=== PATIENT | male | born 1945 | race Caucasian/White ===

== ENCOUNTER → 2020-01-25 | Outpatient (CLI) | payer MEDICARE ==
--- NOTE | 2020-01-26 09:55 | ECHOF ---
Referral Reason:Z73.89 Other problems related to activity... MEASUREMENTS -------- HEIGHT: 185.4 cm WEIGHT: 119.7 kg BP: RVIDd: 3.5 cm (< 3.3) IVSd: 1.2 cm (0.6 - 1.1) LVIDd: 4.3 cm (3.9 - 5.3) LVPWd: 1.2 cm (0.6 - 1.1) IVSs: 1.4 cm LVIDs: 3.1 cm LVPWs: 1.5 cm LA Diam: 3.5 cm (2.7 - 3.8) Ao Diam: 3.5 cm (2.0 - 3.7) AV Cusp: 1.9 cm (1.5 - 2.6) MV EXCURSION: 8.883 mm (> 18.000) MV EF SLOPE: 40 mm/s (70 - 150) EPSS: 1.2 cm MV E Jaziel: 0.74 m/s MV DecT: 243 ms MV A Jaziel: 0.83 m/s MV E/A Ratio: 0.90 RAP: 5.00 mmHg RVSP: 48.21 mmHg FINDINGS -------- Sinus rhythm. This was a technically difficult study with suboptimal views. The left ventricular size is normal. There is borderline concentric left ventricular hypertrophy. Overall left ventricular systolic function is normal with, an EF between 60 - 65 %. The right ventricle is mildly enlarged. The left atrium is normal in size. The right atrium was not well visualized. 5.0mg of Lumason was utilized for enhancement of images Interatrial and interventricular septum intact. The aortic valve is trileaflet and appears structurally normal. The mitral valve is normal. Mild tricuspid regurgitation present. There is mild to moderate pulmonary hypertension. The right ventricular systolic pressure, as measured by Doppler, is 48.21mmHg. The pulmonic valve was not well visualized. The aortic root size is normal. IVC Not well visulized. Echo free space may represent effusion or a pericardial fat pad. CONCLUSIONS -------- 1. The left ventricular size is normal. 2. There is borderline concentric left ventricular hypertrophy. 3. Overall left ventricular systolic function is normal with, an EF between 60 - 65 %. 4. The right ventricle is mildly enlarged. 5. 5.0mg of Lumason was utilized for enhancement of images 6. Mild tricuspid regurgitation present. 7. There is mild to moderate pulmonary hypertension. 8. The right ventricular systolic pressure, as measured by Doppler, is 48.21mmHg. 9. Echo free space may represent effusion or a pericardial fat pad. LEAD PROJECT MANAGER: JARRED Rainey
== END | disposition home or self-care (01) ==
LOC: RADECHMAIN 11:58
PROVIDERS: ATTEND Family Medicine
DX: I07.1 Rheumatic tricuspid insufficiency (principal); I27.20 Pulmonary hypertension, unspecified
CPT/HCPCS: C8929; Q9950; 93306

== ENCOUNTER → 2020-06-08 | Outpatient (CLI) | payer MEDICARE ==
--- NOTE | 2020-06-08 11:48 | CT ---
EXAMINATION TYPE: CT chest w con DATE OF EXAM: 06/08/2020 COMPARISON: None HISTORY: Dyspnea on exertion. CT DLP: 579.4 mGycm, Automated exposure control for dose reduction was used. CONTRAST: Performed injected with 100 mL of Isovue M300. TECHNIQUE: Axial images were obtained at 5 mm thick sections. Reconstructed images are reviewed on [employer] computer in the coronal plane. FINDINGS: There is elevation of the left diaphragm. Portion of the thyroid visualized is normal. Tiny 3 mm nodule is within the lingula. Series 4 image 20. Some mild compressive atelectasis is adjac ent to the elevated left diaphragm. Dependent atelectasis may be present. No enlarged mediastinal or hilar adenopathy is evident. The ascending aorta diameter at the level o f the main pulmonary artery is 3.6 cm. The main pulmonary artery diameter at the bifurcation is 2.[address] sections are obtained through the upper abdomen. Abdomen is essentially unremarkable. IMPRESSIONS: 1. Tiny 3 mm nodule within the lingula.
--- NOTE | 2020-06-08 13:30 | FL ---
Fluoroscopy INDICATION: Pain FINDINGS: Fluoroscopy time: 36 seconds. Images obtained: 2. There is normal motion of the right diaphragm with quiet breathing. The left diaphragm is elevated wi th without significant movement with quite breathing. Some paradoxical motion of the left diaphragm i s noted with sniffing. IMPRESSIONS: 1. Elevated left diaphragm has paradoxical motion on the sniff test.
== END ==
LOC: RADFLMAIN 10:32
PROVIDERS: ATTEND Internal Medicine Critical Care Medicine
DX: R91.1 Solitary pulmonary nodule (principal); Q79.1 Other congenital malformations of diaphragm
CPT/HCPCS: 82565; 84520; 76000; 71260; 36415; Q9967

== ENCOUNTER → 2020-06-18 | Outpatient (CLI) | payer MEDICARE ==
--- NOTE | 2020-06-18 16:20 | XR ---
Chest x-ray with right RIBS HISTORY: Right lower lateral rib pain, left hemidiaphragm paralysis Frontal view of the chest and 4 views of the right ribs correlated to chest CT dated 06/08/2020 There is no displaced rib fracture. Left hemidiaphragm remains elevated. Postop change noted in the r ight humerus. There is no pneumothorax or pleural effusion. Cardiac mediastinal silhouette is within normal limits. IMPRESSION: No evident rib fracture, bone scan could be performed for increased sensitivity as indica estephania.
== END | disposition home or self-care (01) ==
LOC: RADXRMAIN 15:09
PROVIDERS: ATTEND Nurse Practitioner Family
DX: R07.81 Pleurodynia (principal)

== ENCOUNTER → 2020-06-20 | Outpatient (CLI) | payer MEDICARE ==
[2020-06-20 18:35] LABS: Basophils # (A) 0.07 X 10*3/uL (0.00-0.10); Basophils % (A) 0.8 %; Eosinophils # (A) 0.22 X 10*3/uL (0.04-0.35); Eosinophils % (A) 2.4 %; HCT 45.9 % (39.6-50.0); HGB 14.7 g/dL (13.0-17.0); Lymphocytes # (A) 2.12 X 10*3/uL (0.90-5.00); Lymphocytes % (A) 23.4 %; MCH 30.8 pg (27.0-32.0); MCV 96.2 fL (80.0-97.0); Mean Platelet Volume 12.3 fL (9.5-12.2); Monocytes % (A) 7.7 %; Neutrophils # (A) 5.91 X 10*3/uL (1.80-7.70); Neutrophils % (A) 65.4 %; Platelet Count 256 X 10*3/uL (140-440); RBC 4.77 X 10*6/uL (4.40-5.60); WBC 9.05 X 10*3/uL (4.50-10.00)
[2020-06-20 22:02] LABS: Hemoglobin A1C 6.6 % (4.0-6.0)
[2020-06-20 22:41] LABS: African American GFR (CKD) 69.6 (60.0-200.0); Albumin/Globulin Ratio 2.5 (1.60-3.17); Anion Gap 8.6 mmol/L (4.00-12.00); BUN/Creat Ratio 16.67 Ratio (12.00-20.00); Calcium 9.8 mg/dL (8.7-10.3); Carbon Dioxide 26.4 mmol/L (21.6-31.8); Chol/HDL Ratio 4.68; Non-African American GFR(CKD) 60.1 (60.0-200.0); Potassium 4.8 mmol/L (3.5-5.5); Total Bilirubin 0.8 mg/dL (0.3-1.2)
[2020-06-21 01:24] LABS: Urine Creatinine 155.4 mg/dL
== END | disposition home or self-care (01) ==
LOC: LABWHC1 12:19
PROVIDERS: ATTEND Nurse Practitioner Family
DX: E11.9 Type 2 diabetes mellitus without complications (principal)
CPT/HCPCS: 36415; 80053; 80061; 82043; 82570; 83036; 85025

== ENCOUNTER → 2020-07-03 | Outpatient (CLI) | payer MEDICARE ==
--- NOTE | 2020-07-04 15:36 | NM ---
EXAMINATION TYPE: NM bone scan whole body DATE OF EXAM: 07/03/2020 COMPARISON: Chest x-ray with ribs 06/18/2020, CT chest 06/08/2020 HISTORY: Chest pain, pleurodynia, R07.81 Delayed whole-body scanning was performed following the injection of 24.9 mCi Tc 99m MDP. Images acq uired 3 hours post injection. FINDINGS: There is some mild uptake within the lumbar spine, bandlike area of increased uptake present within T 9 thoracic vertebral body level likely related to severe degenerative changes noted on plain film and CT. There is uptake within the feet right greater than left, sternoclavicular joints, shoulders grea ter than right, elbows, hands, hips. Photopenic area present within the left knee is consistent with prior kyphoplasty, there is uptake in the bilateral knees. There is uptake along the costochondral ca rtilage bilaterally. IMPRESSION: Degenerative disc changes are present in the visualized spine, uptake within the T8-9 level right ova ry related to significant disc disease seen on CT. No abnormal uptake within the ribs to suggest frac ture. Costochondral uptake is symmetric. Soft tissue uptake is normal. Osteoarthritic changes are rizwan pected. Postop change.
== END | disposition home or self-care (01) ==
LOC: RADNMMAIN 11:02
PROVIDERS: ATTEND Family Medicine
DX: M51.34 Other intervertebral disc degeneration, thoracic region (principal)
CPT/HCPCS: 78306; A9503

== ENCOUNTER → 2020-09-24 | Outpatient (CLI) | payer MEDICARE | END | disposition home or self-care (01) | DX: K21.9 Gastro-esophageal reflux disease without esophagitis (principal) | CPT/HCPCS: 74220 ==

== ENCOUNTER → 2020-12-19 | Outpatient (CLI) | payer MEDICARE ==
[2020-12-19 13:14] VITALS: BP 112/75; PULSE 65; RESP 18; TEMP 97.7
--- NOTE | 2020-12-19 15:45 | P.PAINCN ---
History of Present Illness - Reason for Consult Consult date: 12/19/20 - Chief Complaint hand pain - History of Present Illness Mr. Salgado is a 75 -year-old pleasantmalecame [facility] for potential consultation for hand pain. Patient has ongoing pain for many years. patient had a neck pain but not radiating to his upper extremity causing any numbness, tingling sensation. But patient experiencing pain in his right hand just above radial stylet area. And also experiencing numbness tingling sensation over the ring finger, and little finger on the left side. His left hand pain radiating from his forearm all the way to traveling to his palatal, and ring fingers. His pain is aggravated in certain positions. Most of the time his pain is tolerable. patient had mild neck pain which he described is aching, throbbing type sometimes. his neck pain is not radiating to his upper extremities.. Patient rated pain levels are4-5out of 10 in severity. patient had history of bilateral carpal tunnel release surgery done. Activities making pain worse. Medications, resting helping in relieving patient's pain. Patient pain some days better than others. Overall activities decreased secondary to pain. Because of the pain sometimes patient is feeling lack of sleep, interest, and energy. Denied any bowel or bladder problems at this time. not using any walking aids. Patient denied any suicidal ideas/homicidal ideas at this time. Patient denied any red flag symptoms related to pain. Review of Systems 1- Constitutional : Patient denies anorexia, no chills , no fever , no night sweats , no change of appetite, no lethargy 2- Ears : No ear ache , no tinnitus , no ear discharge , no change in hearing 3-Nose, Mouth ,Throat ; no bleeding gums, no sore throat , no epistaxis , no hoarseness , no nose pain , no voice change 4-Cardiovascular : Denies chest pain, denies lightheadedness , no orthopnea , no palpitation , no paroxysmal nocturnal dyspnea no syncope , no leg edema , no irregular heartbeat 5-Respiratory : Denies cough , no dyspnea , no hemoptysis , no sleep apnea, no wheezing , no excessive sputum 6-Gastrointestinal : No jaundice , no nausea , no vomiting ,No abdominal pain , no bloating , no coffee-ground emesis , no hematochezia , No melena , 7-Genitourinary : No hematuria , no discharge , no urinary frequency , no urinary hesitancy , no incontinence, No dysuria 8-Musculoskeletal : No gait dysfunction , report low back pain , 9- Neurological : no ataxia , no aphasia ,no balance difficulties , no change in visions , no change in speech , no tremor , no vertigo , no sezure , no memory loss 10-Psychatric : no anexity ,no depression , no suicidal ideation , no change in appetite , no memory loss , no hallucination 11- Endocrine : no cold intolerence , no nocturia , no polyuria , no polydypsia , no heat intolerance 12-Hematologic : no easy bleeding , no easy brusing , 13-Allergic / immunology : no angioedema , no wheezing ,no allergic rhinitis no glutean intolerence 14-Integumentary : no brttle nails , no change hair / nails , no hirsutism no depigmentation , no foot/leg ulcers Past Medical History Past Medical History: Asthma, COPD, Diabetes Mellitus, Eye Disorder, GERD/Reflux, Hypertension, Pneumonia History of Any Multi-Drug Resistant Organisms: None Reported Past Surgical History: Joint Replacement Additional Past Surgical History / Comment(s): catarcat surgery, urethra/bladder surgery, both knees replaced, right shoulder restructured. toe surgery. orthoscopic surgery on shoulder, carpol tunnel surgery both hands, vasectomy, Past Anesthesia/Blood Transfusion Reactions: No Reported Reaction Smoking Status: Former smoker Medications and Allergies Home Medications Medication Instructions Recorded Confirmed Type Albuterol Sulfate [Proair 90 mcg INHALATION DAILY 12/19/20 12/19/20 History Digihaler] Aspirin 325 mg PO DAILY 12/19/20 12/19/20 History Budesonide/Formoterol Fumarate 10.2 gm INHALATION DAILY 12/19/20 12/19/20 History [Budesonide-Formoterol 160-4.5] Famotidine 20 mg PO DAILY 12/19/20 12/19/20 History Fluticasone Propionate 44 Mcg 44 mcg INHALATION DAILY 12/19/20 12/19/20 History [Flovent 44 Mcg Inhaler (Mhu)] Ibuprofen [Motrin] 600 mg PO TID PRN 12/19/20 12/19/20 History Losartan/Hydrochlorothiazide 1 tab PO DAILY 12/19/20 12/19/20 History [Losartan-Hctz 100-12.5 mg Tab] Metoprolol Succinate [Toprol XL] 50 mg PO BID 12/19/20 12/19/20 History Montelukast [Singulair] 10 mg PO DAILY 12/19/20 12/19/20 History Tiotropium 2.5 Mcg/Puff [Spiriva 2.5 mcg INHALATION DAILY 12/19/20 12/19/20 History Respimat 2.5 Mcg] Venlafaxine HCl 75 mg PO TID 12/19/20 12/19/20 History metFORMIN HCL 500 mg PO TID 12/19/20 12/19/20 History Physical Exam Vitals: Vital Signs Temp Pulse Resp BP Pulse Ox 12/19/20 13:08 97.7 F 65 18 112/75 97 Intake and Output 12/19/20 12/19/20 12/19/20 06:59 14:59 22:59 Other: Weight 109.316 kg General: Well-developed, well-nourished, no acute distress HEENT: Normocephalic, and atraumatic Neck: Supple, no neck swelling Psychiatric: Appropriate mood, and affect FRICKERTRON CHECKER: No focal neurological deficits Musculoskeletal: Upper extremity: Normal strength, and range of motion. Sensation grossly intact Deanna's test - positive on right side Tinel sign positive on- left upper extremity cubital tunnel area, and ulnar nerve distribution Lower extremity: Normal strength, and range of motion Cervical spine: Paravertebral tenderness: Positive Cervical spine facet elliott: Positive Cervical spine Spurling test: negative Assessment and Plan Assessment: cervical spondylosis without myelopathy right side- de quervain's tenosynovitis left side- cubital tunnel syndrome Plan: #1 Opioid, and psychological risk tools, and scores were reviewed. Diagnoses, prognosis, and multiple treatment options including but not limited to physical therapy, interventional therapy, adjunct medication therapy, narcotic medication, and surgical options were discussed with the patient. And all questions were answered to the patient's satisfaction. #2 treatment plan agreement : Patient was thoroughly discussed regarding the treatment options, alternatives, and importance of exercises as tolerated. Patient clearly understood. #3 Patient was counseled on importance of regular exercise. Including jake chi, aerobic exercises as tolerated. Which helps for chronic pain, and overall well- being. Patient also counseled regarding importance of weight control rolling chronic pain, and overall other health issues. By altering diet habits, minimizing sugar intake, and processed foods helps in minimizing Inflammation. #4 investigations: MAPS- reviewed , urine drug test- not done #5 diagnostic tests: none #6 consultation : recommended to see hand surgeon / plastic surgeon for decompression. # 7 interventional procedures: interventional procedure injections discussed with the patient, but patient wants curative treatment. So recommended the patient for surgical consultation #8 medications magnesium oxide 400 mg by mouth daily Medication side effects, complications, long-term consequences discussed with the patient. Patient recommended to contact the pain clinic if noticed any issues with given medications. #9 morphine milligrams equivalents dose ( MME) per day: 0 # 10 TENS unit's, and percussion massage device #11 disposition: follow up with the pain clinic as needed in future. Time with Patient: Greater than 30 PQRS Measure Charge Sheet Mode of Arrival: Ambulatory - Pain Location Bilateral Arm Non-Pharmacological Interventions: Chiropractic Treatment, Heat, Massage Pharmacological Interventions: PRN Medication PQRS Narrative: Blood Pressure 112/75 Pain Intensity [Bilateral Arm] 3 Scale Used Numeric (1 - 10) Hx Alcohol Use (MH) No Home Medications: Ambulatory Orders Albuterol Sulfate [Proair Digihaler] 90 mcg INHALATION DAILY 12/19/20 Aspirin 325 mg PO DAILY 12/19/20 Budesonide/Formoterol Fumarate [Budesonide-Formoterol 160-4.5] 10.2 gm INHALATION DAILY 12/19/20 Famotidine 20 mg PO DAILY 12/19/20 Fluticasone Propionate 44 Mcg [Flovent 44 Mcg Inhaler (Mhu)] 44 mcg INHALATION DAILY 12/19/20 Ibuprofen [Motrin] 600 mg PO TID PRN 12/19/20 Losartan/Hydrochlorothiazide [Losartan-Hctz 100-12.5 mg Tab] 1 tab PO DAILY 12/19/20 Metoprolol Succinate [Toprol XL] 50 mg PO BID 12/19/20 Montelukast [Singulair] 10 mg PO DAILY 12/19/20 Tiotropium 2.5 Mcg/Puff [Spiriva Respimat 2.5 Mcg] 2.5 mcg INHALATION DAILY 12/19/20 Venlafaxine HCl 75 mg PO TID 12/19/20 metFORMIN HCL 500 mg PO TID 12/19/20
== END ==
LOC: PNWHC3 12:30
DX: M47.812 Spondylosis without myelopathy or radiculopathy, cervical region (principal); M65.4 Radial styloid tenosynovitis [de Quervain]; G56.22 Lesion of ulnar nerve, left upper limb; J44.9 Chronic obstructive pulmonary disease, unspecified; E11.9 Type 2 diabetes mellitus without complications; I10 Essential (primary) hypertension; Z87.891 Personal history of nicotine dependence; Z79.84 Long term (current) use of oral hypoglycemic drugs; Z79.51 Long term (current) use of inhaled steroids; Z79.899 Other long term (current) drug therapy
CPT/HCPCS: 99202

== ENCOUNTER → 2021-09-05 | Outpatient (CLI) | payer MEDICARE ==
[2021-09-05 19:48] LABS: African American GFR (CKD) >90 (>60 ml/min/1.73 sqM); Blood Urea Nitrogen 18 mg/dL (9-20); Non-African American GFR(CKD) 78 (>60 ml/min/1.73 sqM)
--- NOTE | 2021-09-06 09:47 | CT ---
EXAMINATION TYPE: CT chest w con DATE OF EXAM: 09/05/2021 COMPARISON: Chest CT June 08, 2020 HISTORY: Dyspnea CT DLP: 580.0 mGycm. Automated Exposure Control for Dose Reduction was Utilized. TECHNIQUE: CT scan of the thorax is performed following with IV Contrast, patient injected with 100m l mL of Isovue 300. FINDINGS: LUNGS: Elevated left hemidiaphragm redemonstrated. Persistent left basilar linear scarring and/or ate lectasis. Stable 3 to 4 mm left midlung nodule appears calcified on the current study axial image 21. Stable 4 to 5 mm noncalcified posterior left upper lobe nodule axial image 13. No pleural effusion o r pneumothorax seen bilaterally. No new greater than 5 mm pulmonary nodules. Lungs remain clear. MEDIASTINUM: There are no greater than 1 cm hilar or mediastinal lymph nodes. No cardiomegaly or pe ricardial effusion is seen. Coronary artery calcification is redemonstrated. There is four vessel or igin from aortic arch which is normal variant. OTHER: Bilateral flame-shaped gynecomastia is again seen. Moderate spurring and disc space narrowing with endplate sclerosis in the mid to lower thoracic spine greatest at T9-T10 level. IMPRESSION: Persistent elevated left hemidiaphragm with left basilar linear scarring and/or atelectas is. No acute pulmonary process. No significant change from prior CT.
== END | disposition home or self-care (01) ==
LOC: RADCTMAIN 17:55
PROVIDERS: ATTEND Internal Medicine Critical Care Medicine
DX: J98.6 Disorders of diaphragm (principal)
CPT/HCPCS: 82565; 84520; 71260; 36415; Q9967

== ENCOUNTER 2021-09-24 09:19 | Day surgery (SDC) | payer MEDICARE ==
[2021-09-20 11:19] VITALS: BMI 32.5
[~2021-09-24 09:19] MED LIST: LACTATED RINGERS 1,000 ML IV SCH; LIDOCAINE 1% (10MG/ML) FOR IV START INTRADERMA PRN
[2021-09-24 09:50] VITALS: RESP 16; TEMP 96.8
[2021-09-24] MEDS ORDERED: PROPOFOL 10 MG/ML 20 ML VIAL IV ONE (09:52)
[2021-09-24] MEDS ORDERED: LIDOCAINE 2% INJ 20 MG/ML (2 ML VIAL) ONE (09:52)
[2021-09-24 09:57] LABS: Glucose,Whole Blood 112 mg/dL (70-110)
--- NOTE | 2021-09-24 10:01 | P.GSHP ---
History of Present Illness H&P Date: 09/24/21 Chief Complaint: Abdominal pain, bloody stool 76-year-old male here for colonoscopy. Patient states he has been having dark blood in his stool. Sometimes black he says. He says he has abdominal pain after eating. That will often lead to diarrhea. Patient with history of previous polyps in the distant past. No dysphagia. Past Medical History Past Medical History: Asthma, Cancer, COPD, Diabetes Mellitus, GERD/Reflux, Hearing Disorder / Deafness, Hyperlipidemia, Hypertension, Pneumonia Additional Past Medical History / Comment(s): Slow growing prostate cancer, being monitored frequently. Bilateral hearing aids. History of Any Multi-Drug Resistant Organisms: None Reported Past Surgical History: Joint Replacement, Orthopedic Surgery, Prostate Surgery Additional Past Surgical History / Comment(s): Bilateral catarcat surgery, urethra/bladder surgery, bilateral knee replacements, right shoulder surgery, toe surgery, bilateral hand carpal tunnel surgery, vasectomy, surgery for prostate cancer - "cleaned it out." Past Anesthesia/Blood Transfusion Reactions: Previous Problems w/ Anesthesia Additional Past Anesthesia/Blood Transfusion Reaction / Comment(s): Slow to wake up after one knee surgery, "had high dose of knock out medication." Past Psychological History: Anxiety, PTSD Smoking Status: Former smoker Past Alcohol Use History: Occasional Additional Past Alcohol Use History / Comment(s): Quit smoking in s, smoked briefly while in [employer]. Past Drug Use History: None Reported - Past Family History Sister(s) Family Medical History: Cancer Medications and Allergies Home Medications Medication Instructions Recorded Confirmed Type Albuterol Sulfate [Proair 90 mcg INHALATION DAILY PRN 12/19/20 09/20/21 History Digihaler] Metoprolol Succinate [Toprol XL] 50 mg PO QAM 12/19/20 09/20/21 History Montelukast [Singulair] 10 mg PO HS 12/19/20 09/20/21 History Venlafaxine HCl 225 mg PO QAM 12/19/20 09/24/21 History metFORMIN HCL 500 mg PO BID 12/19/20 09/20/21 History Aspirin [Adult Low Dose Aspirin EC] 81 mg PO DAILY 09/20/21 09/20/21 History Atorvastatin [Lipitor] 80 mg PO HS 09/20/21 09/20/21 History Losartan Potassium 100 mg PO QAM 09/20/21 09/20/21 History Multivitamins, Thera [Multivitamin 1 tab PO DAILY 09/20/21 09/20/21 History (formulary)] Omeprazole 40 mg PO QAM 09/20/21 09/20/21 History Symbicort (Unknown Dose) 1 puff INHALATION DIRECTED PRN 09/20/21 09/20/21 History Allergies Allergy/AdvReac Type Severity Reaction Status Date / Time Penicillins Allergy Rapid Verified 09/20/21 10:49 Heart Rate Surgical - Exam Vital Signs Temp Pulse Resp BP Pulse Ox 96.8 F L 89 16 164/77 97 09/24/21 09:39 09/24/21 09:39 09/24/21 09:39 09/24/21 09:39 09/24/21 09:39 Physical exam: General: Well-developed, well-nourished HEENT: Normocephalic, sclerae nonicteric Abdomen: Nontender, nondistended Extremities: No edema Neuro: Alert and oriented Results - Labs Abnormal Lab Results - Last 24 Hours (Table) 09/24/21 Range/Units 09:48 POC Glucose (mg/dL) 112 H (70-110) mg/dL Assessment and Plan (1) Blood in stool Narrative/Plan: Options reviewed with the patient. Because of the black colored stools and upper abdominal pain we have agreed to add EGD to today's procedure. We'll proceed with EGD and colonoscopy at this time. Current Visit: Yes Status: Acute Code(s): K92.1 - MELENA SNOMED Code(s): 061489030
--- NOTE | 2021-09-24 10:21 | P.PCN ---
Date of Procedure: 09/24/21 Procedure(s) Performed: PREOPERATIVE DIAGNOSIS: Abdominal pain, blood in stool POSTOPERATIVE DIAGNOSIS: Gastritis, diverticulosis PROCEDURE: 1. EGD with biopsy 2. Colonoscopy ANESTHESIA: MAC SURGEON: Kendall Casas M.D. SPECIMENS: Antrum ENDOSCOPIC PROCEDURE: The patient was on the endoscopy table in the left decubitus position. The Olympus gastroscope was inserted into the oropharynx and passed under direct visualization to the region of the third portion of the duodenum. From that point the scope was slowly withdrawn inspecting all surfaces carefully. There were no neoplastic inflammatory or polypoid lesions throughout the duodenum. The pylorus was widely patent. The stomach was carefully inspected. There was antral gastritis present. A biopsy of the antrum took place to rule out H. pylori. Retroflexion revealed a normal hiatus. The esophagus was then carefully examined. There were no neoplastic inflammatory or polypoid lesions throughout the visualized esophagus. The patient was kept on the endoscopy table in the left decubitus position. The Olympus colonoscope was inserted into the anus and passed under direct visualization to the base of the cecum. The appendiceal orifice was visualized. From that point the scope was slowly withdrawn inspecting all surfaces car efully. There were no neoplastic inflammatory or polypoid lesions throughout the cecum, ascending, transverse, descending, sigmoid and rectum. There was scattered diverticulosis noted throughout the left colon. Digital rectal examination was normal. The patient was taken to the recovery room in stable condition per anesthesia guidelines. RECOMMENDATIONS: Await biopsy results. Repeat colonoscopy 5-10 years based on previous colon polyp diagnosis.
[2021-09-24 10:41] VITALS: BP 144/81; PULSE 69
== END 2021-09-24 11:14 | disposition home or self-care (01) ==
LOC: ORWHC2ENDO 09:19
PROVIDERS: ATTEND Surgery
DX: K29.50 Unspecified chronic gastritis without bleeding (principal); K57.30 Diverticulosis of large intestine without perforation or abscess without bleeding; J44.9 Chronic obstructive pulmonary disease, unspecified; E11.69 Type 2 diabetes mellitus with other specified complication; E78.5 Hyperlipidemia, unspecified; K21.9 Gastro-esophageal reflux disease without esophagitis; I10 Essential (primary) hypertension; Z85.46 Personal history of malignant neoplasm of prostate; H91.90 Unspecified hearing loss, unspecified ear; Z98.52 Vasectomy status; F41.9 Anxiety disorder, unspecified; F43.10 Post-traumatic stress disorder, unspecified; Z87.891 Personal history of nicotine dependence; Z79.84 Long term (current) use of oral hypoglycemic drugs; Z79.82 Long term (current) use of aspirin; Z79.899 Other long term (current) drug therapy; Z88.0 Allergy status to penicillin; Z80.9 Family history of malignant neoplasm, unspecified
CPT/HCPCS: 88305; 45378; 43239; J2704; J2001

== ENCOUNTER 2022-08-26 06:09 | Day surgery (SDC) | payer MEDICARE, OTHER ==
[~2022-08-26 06:09] MED LIST changes: -LIDOCAINE 1% (10MG/ML) FOR IV START INTRADERMA PRN
[2022-08-26 06:38] VITALS: RESP 16; TEMP 97.4
[2022-08-26 06:51] LABS: Glucose,Whole Blood 116 mg/dL (70-110)
[2022-08-26] MEDS ORDERED: PROPOFOL 10 MG/ML 20 ML VIAL IV ONE (07:03)
[2022-08-26] MEDS ORDERED: LIDOCAINE 2% INJ 20 MG/ML (2 ML VIAL) ONE (07:03)
--- NOTE | 2022-08-26 07:27 | P.PCN ---
Date of Procedure: 08/26/22 Procedure(s) Performed: Brief history: Patient is a pleasant 77-year-old white male scheduled for an elective upper endoscopy as well as colonoscopy as a part of evaluation of GERD and screening for colon cancer Procedure performed: Esophagogastroduodenoscopy with biopsy Colonoscopy Preoperative diagnosis: GERD Screening for colon cancer Anesthesia: MAC Procedure: After informed consent was obtained from the patient was brought into the endoscopy unit and IV sedation was administered by anesthesia under continuous monitoring. Initially upper endoscopy was done. The Olympus GF 160 video endoscope was inserted inserted into the mouth and esophagus intubated without any difficulty and was gradually advanced into the stomach and duodenum and carefully examined. The bulb and second part of the duodenum appeared normal. Biopsies were done from the duodenum to rule out celiac disease. The scope was then withdrawn into the stomach adequately insufflated with air and upon careful examination the antrum had mild ascites and biopsies were done from this area. Mucosa of the body, cardia and fundus appeared normal. The scope was then withdrawn into the esophagus. The GE junction was located at 40 cm to the incisors. It appeared regular with no erythema erosions or ulcerations. Rest of the esophagus appeared normal. Patient tolerated the procedure well. At this time the patient continued to remain sedation. Initial digital rectal examination was normal. Olympus CF 160 video colonoscope was then inserted into the rectum and gradually advanced to the cecum without any difficulty. Careful examination was performed as the scope was gradually being withdrawn. The prep was excellent. The cecum, ascending colon, transverse colon, descending colon, sigmoid colon and rectum appeared normal. Scattered sigmoid diverticulosis. Retroflexion was performed in the rectum and no lesions were noted. Patient tolerated the procedure well. Impression: 1. Upper endoscopy revealed mild antral gastritis but no evidence of esophagitis or peptic ulcer disease 2. Colonoscopy revealed scattered sigmoid diverticulosis but no evidence of colorectal neoplasia Recommendations: Findings of this examination were discussed with the patient as well as his family. He was advised to follow with the biopsy results. Recommend high-fiber diet and fiber supplements as needed.
[2022-08-26 07:46] VITALS: BP 139/81; PULSE 67
== END 2022-08-26 08:10 | disposition home or self-care (01) ==
LOC: ORWHC2ENDO 06:09
PROVIDERS: ATTEND Internal Medicine Gastroenterology
DX: Z12.11 Encounter for screening for malignant neoplasm of colon (principal); K29.50 Unspecified chronic gastritis without bleeding; K21.9 Gastro-esophageal reflux disease without esophagitis; K57.30 Diverticulosis of large intestine without perforation or abscess without bleeding; I10 Essential (primary) hypertension; E78.5 Hyperlipidemia, unspecified; E11.9 Type 2 diabetes mellitus without complications; Z79.84 Long term (current) use of oral hypoglycemic drugs; Z88.0 Allergy status to penicillin; Z79.899 Other long term (current) drug therapy
CPT/HCPCS: 88305; 45378; 43239; J2704; J2001

== ENCOUNTER → 2022-11-26 | Outpatient (CLI) | payer MEDICARE ==
--- NOTE | 2022-11-26 10:19 | FL ---
Fluoroscopy: Sniff test INDICATION: Disorder of diaphragm COMPARISON: Chest x-ray 10/08/2022. FINDINGS: Fluoroscopy time: 38 seconds. Total dose area product (DAP) in uGy*m?, mGy*cm? (or similar): 387.13 Images obtained: 1. With quiet breathing there is normal excursion of the right diaphragm. There is some diminished excur kiel of the elevated left diaphragm. Paradoxical motion with quiet breathing and with sniffing and de ep breaths was not evident. IMPRESSION: 1. Elevation of the left diaphragm appears to be a change from 10/08/2022. 2. Normal diaphragm motion with breathing, excursion of the left diaphragm however is somewhat dimini shed.
== END | disposition home or self-care (01) ==
LOC: RADUSWWP 09:46
PROVIDERS: ATTEND Internal Medicine Critical Care Medicine
DX: J98.6 Disorders of diaphragm (principal)
CPT/HCPCS: 76000

== ENCOUNTER → 2023-08-10 | Outpatient (CLI) | payer MEDICARE ==
[2023-08-10 09:20] LABS: African American GFR (CKD) >90 (>60 ml/min/1.73 sqM); Blood Urea Nitrogen 19 mg/dL (9-20); Non-African American GFR(CKD) 85 (>60 ml/min/1.73 sqM)
--- NOTE | 2023-08-10 12:54 | FL ---
EXAMINATION TYPE: FL barium swallow DATE OF EXAM: 08/10/2023 COMPARISON: None HISTORY: Throat pain sticking right throat TECHNIQUE: A double air contrast esophagram study is performed. FINDINGS: Fluoroscopy time: 28 seconds. DAP: 4963.49. Images: 172. Esophagus dilates to normal caliber has normal contour the gastroesophageal junction. Gastroesophagea l junction opens to normal caliber. Note is made of multiple tertiary contractions within the distal half of the esophagus during the examination. There is incomplete stripping esophageal bolus in the u pright position. In the horizontal position there is complete stripping of the esophageal bolus witho ut tertiary contractions. No aspiration is evident. No persistent focal stenosis. IMPRESSION: 1. Presbyesophagus with hesitancy of contrast passing through the gastroesophageal junction.
--- NOTE | 2023-08-11 11:09 | CT ---
EXAMINATION TYPE: CT soft tissue neck w con DATE OF EXAM: 08/10/2023 COMPARISON: None HISTORY: chronic sore throat CT DLP: 755 mGycm CONTRAST: Patient injected with 100 mL of Isovue 300. TECHNIQUE: Axial images at 3 mm thick sections. Reconstructed images in the coronal plane and sagitt al plane are reviewed. FINDINGS: Limited CT sections are obtained the lung apices. The lung apices appear clear. CT neck: The torus tubarius and fossa of Rosenmuller are normal. Desizing Machine Back Tender spaces are normal. Para nasal sinuses and mastoid air cells are clear. Parotid glands appear normal and symmetrical. Submandibular glands, are normal. Parapharyngeal spac es are normal. No suspicious adenopathy is evident. Scattered small nodes are present. The hypopharynx appears within normal limits. Vocal cord level appear symmetrical. Thyroid as visualized is normal. Minimal plaque is at the right internal carotid artery origin. More moderate plaque is present in the left internal carotid artery origin consider correlation with ultrasound. Osseous structures are normal. IMPRESSION: 1. No suspicious abnormality to account for sore throat. 2. Atheromatous plaquing carotid bifurcations more so on the left. Correlate with carotid ultrasound
== END | disposition home or self-care (01) ==
LOC: RADCTMAIN 08:26
PROVIDERS: ATTEND Otolaryngology
DX: K22.89 Other specified disease of esophagus (principal); J31.2 Chronic pharyngitis
CPT/HCPCS: 82565; 84520; 74220; 70491; 36415; Q9967

== ENCOUNTER → 2023-08-19 | Outpatient (CLI) | payer MEDICARE ==
--- NOTE | 2023-08-23 15:29 | US ---
EXAMINATION TYPE: US carotid duplex BILAT DATE OF EXAM: 08/19/2023 COMPARISON: CT neck 08/10/2023 CLINICAL INDICATION: Male, 78 years old with history of I70.90 UNSPECIFIED ATHEROSCLEROSIS; known corky que, no symptoms, no stroke TECHNIQUE: Carotid duplex ultrasound examination. Indirect Doppler criteria was utilized. FINDINGS: EXAM MEASUREMENTS: RIGHT: Peak Systolic Velocity (PSV) cm/sec ----- Right CCA: 96.1 ----- Right ICA: 89.6 ----- Right ECA: 111.0 ICA/CCA ratio: 0.9 RIGHT: End Diastole cm/sec ----- Right CCA: 26.6 ----- Right ICA: 18.2 ----- Right ECA: 13.2 LEFT: Peak Systolic Velocity (PSV) cm/sec ----- Left CCA: 124.0 ----- Left ICA: 111.0 ----- Left ECA: 163.0 ICA/CCA ratio: 0.9 LEFT: End Diastole cm/sec ----- Left CCA: 15.4 ----- Left ICA: 19.8 ----- Left ECA: 10.1 VERTEBRALS (direction of flow): Right Vertebral: Antegrade Left Vertebral: Antegrade Rhythm: Normal [employer] REPRESENTATIVE NOTES: Heterogeneous plaque with no significant stenosis Atheromatous plaque at the left carotid bulb without significant stenosis. IMPRESSION: No ultrasound evidence for hemodynamically significant stenosis of the bilateral visualized carotid a rterial systems. Criteria for Assigning % of Stenosis / Diameter reduction (Estimation based on the indirect measurements of the internal carotid artery velocities (ICA PSV). 1. Normal (no stenosis)=ICA PSV < 125 cm/s: ratio < 2.0: ICA EDV<40 cm/s. 2. Less than 50% stenosis=ICA PSV < 125 cm/s: ratio < 2.0: ICA EDV<40 cm/s. 3. 50 to 69% stenosis=ICA PSV of 125 to 230 cm/s: ration 2.0 ? 4.0: ICA EDV 40-100 cm/s. 4. Greater than 70% stenosis to near occlusion= ICA PSV > 230 cm/s: ratio > 4.0: ICA EDV > 100 cm/s. 5. Near occlusion= ICA PSV velocities may be low or undetectable: variable ratio and ICA EDV. 6. Total occlusion=unable to detect flow.
== END | disposition home or self-care (01) ==
LOC: RADUSWWP 13:08
PROVIDERS: ATTEND Otolaryngology
DX: I70.90 Unspecified atherosclerosis (principal)
CPT/HCPCS: 93880